=== PATIENT | female | born 1980 | race Caucasian/White ===

== ENCOUNTER 2016-07-31 14:10 | Emergency (ER) | payer OTHER ==
--- NOTE | 2016-07-31 15:26 | PROVIDER DOCUMENTATION ---
HPI-Abdominal Pain/GI Problem - General Source: patient - History of Present Illness-ABD Nature of Presenting Problems: Pt is 35 y/o F presents to the ED with N/V/D. Pt states Dr. Watson wanted Pt to come to ED to receive fluids. Pt states symptoms have been present for 2 days. Pt states 19 weeks . Pt states pain in RUQ and LUQ and back. Abdominal Pain Onset Location: reports: RUQ, LUQ Pain Radiation: reports: back Quality of Pain: reports: aching Severity in ED: reports: mild Onset/Duration: reports: 2 days ago Timing: reports: still present, intermittent Activities at Onset: reports: light activity Exposure to sick contacts?: No Modifying Factors: improves with: nothing Associated Symptoms: reports: back/neck pain (back pain), diarrhea, loss of appetite, nausea, vomiting, weakness. denies: anxiety, arm pain, chest pain, constipation, cough, diaphoresis, dizziness, EENT symptoms, fatigue, fever/ chills, genitourinary problems, headaches, heartburn, joint pain, malaise, muscle aches, sinus congestion/drainage, rash, seizure, shortness of breath, sensory/motor loss, pain with inspiration, swelling/mass in abdomen, syncope, trouble walking Last BM: unsure Dark Stools Present?: reports: none noticed Rectal Bleeding: reports: none # of Diarrhea Episodes: 4 Rectal Pain: reports: none # of Vomiting Episodes: 6 Emesis Description: reports: clear Bruising or Bleeding Gums?: No Similar Symptoms Previously?: Yes Recently seen or treated by another doctor?: Yes <Diane Mccormick - Last Filed: 07/31/16 17:54> <Orlin Cortez - Last Filed: 07/31/16 18:22> - General Chief Complaint: N/V/D Stated Complaint: 18 WEEKS PREG/N/V/D Time Seen by Provider: 07/31/16 15:06 Allergies/Adverse Reactions: Patient Allergies Allergy/AdvReac Type Severity Reaction Status Date / Time latex Allergy HIVES Verified 11/28/15 01:09 hydrocodone bitartrate * AdvReac NAUSEA/VOMI Verified 11/28/15 01:08 [From Lortab] TING tramadol HCl * [From Ultram] AdvReac NAUSEA/VOMI Verified 11/28/15 01:07 TING Home Medications: Home Medication List Medication Instructions Recorded Confirmed Last Taken Type Vit No.124/Iron/FA 1 tab PO DAILY 11/02/15 11/28/15 11/27/15 History [ Vitamin Tablet] Potassium Chloride [Klor-Con M20] 20 meq PO Q8HR #10 tab.er.prt 07/31/16 Unknown Rx Review of Systems - Adult - REVIEW OF SYSTEMS - ADULT Constitutional: denies: chills, fever Eyes: denies: blurred vision, double vision Ears, Nose, Mouth & Throat: denies: ear pain, nose pain, throat pain Cardiovascular: denies: chest pain, heart murmur, irregular heart rate Respiratory: denies: cough, shortness of breath, wheezing Gastrointestinal: reports: abdominal pain (RUQ and LUQ), diarrhea, nausea, vomiting Genitourinary: denies: dysuria, hematuria Musculoskeletal: reports: back pain. denies: bone pain, joint pain, neck pain Integumentary: denies: hives, itching Neurological: denies: dizziness/vertigo, headache/migraines Psychiatric: reports: no symptoms reported Endocrine: reports: no symptoms reported Hematologic/Lymphatic: reports: no symptoms reported Allergic/Immunologic: reports: no symptoms reported All Other Systems: Reviewed and Negative <Diane Mccormick - Last Filed: 07/31/16 17:54> Past History - Adult - PAST MEDICAL HISTORY-ADULT Review of Records: reports: Nursing Assessment Review, Medications Reviewed, Social history reviewed & non-contributory. Major Childhood Illnesses: reports: denies history Cardiovascular: reports: denies history Respiratory: reports: asthma Gastrointestinal: reports: denies history Obstetrical/Gynecological: reports: denies history Genitourinary: reports: kidney stones Musculoskeletal: reports: denies history Neurological: reports: denies history Endocrine/Immune: reports: anemia Other Conditions: reports: denies history - PRIOR SURGERIES/PROCEDURES Surgical/Procedure History: reports: cholecystectomy - IMMUNIZATION STATUS Childhood Immunizations: See Nurse Assessment Flu Vaccine: See Nurse Assessment - FAMILY HISTORY Family History: reviewed, not pertinent - SOCIAL HISTORY Smoking: quit less than 1 year, cigarettes Substance Use: denies Living Situation: family <Diane Mccormikc - Last Filed: 07/31/16 17:54> Physical Exam-General - PHYSICAL EXAM-ADULT Initial Vital Signs Reviewed: Yes - CONSTITUTIONAL General Appearance: appears well, alert, no apparent distress - EYES Eyes: PERRL/EOMI, pink conjunctivae, fundi clear, no AV nicking - HEAD, EARS, NOSE, MOUTH & THROAT HENMT: normocephalic/atraumatic, moist mucous membranes, normal ENT inspection, TMs normal, pharynx normal - NECK Neck: non-tender, full range of motion, supple, normal inspection - RESPIRATORY Respiratory: chest non-tender, lungs clear, normal breath sounds, no pleuratic chest pain, no respiratory distress, no accessory muscle use - CARDIOVASCULAR Cardiovascular: normal peripheral pulses, regular rate, rhythm, no edema, no gallop, no JVD, no murmur - GASTROINTESTINAL (ABDOMEN) Abdominal Exam: normal bowel sounds, soft, no organomegaly, no pulsatile mass, tenderness (RUQ and LUQ), other (fundus palpable under the umbilicus) - LYMPHATIC Lymphatic: no adenopathy - MUSCULOSKELETAL Back Exam: normal inspection, no CVA tenderness, no vertebral tenderness Extremity: normal range of motion, non-tender, normal gait, normal inspection, no pedal edema, no calf tenderness, normal capillary refill - SKIN Integumentary: normal color, normal turgor, warm/dry - NEUROLOGIC Neurologic: grossly normal - PSYCHIATRIC Psych/Mental Status: normal mood/affect, oriented x 3 <Diane Mccormick - Last Filed: 07/31/16 17:54> Progress - PLAN OF CARE/RESULTS Progress/Plan/Lab Results: Vital Signs - 24 hr 07/31/16 14:15 Temperature 98.2 F Pulse Rate 97 H Respiratory 18 Rate Blood Pressure 128/71 O2 Sat by Pulse 97 Oximetry Laboratory Tests 07/31/16 15:55 WBC 7.49 RBC 4.46 Hgb 11.0 L Hct 33.3 L MCV 74.7 L MCH 24.7 L MCHC 33.0 RDW Std Deviation 17.0 H Plt Count 219 MPV 11.4 H Immature Gran % (Auto) 0.3 Neut % (Auto) 70.5 Lymph % (Auto) 21.0 [place] % (Auto) 7.3 Eos % (Auto) 0.8 Baso % (Auto) 0.1 Immature Gran # (Auto) 0.02 Neut # (Auto) 5.28 Lymph # (Auto) 1.57 [place] # (Auto) 0.55 Eos # (Auto) 0.06 Baso # (Auto) 0.01 Orders Category Date Time Status BMP [BASIC METABOLIC PANEL] [CHEM] Stat Lab 07/31/16 15:55 Received CBC WITH ELECTRONIC DIFF [HEME] Stat Lab 07/31/16 15:55 Completed 0.9% Sodium Chloride Inj [Ns] 1,000 ml Med 07/31/16 15:36 Active IV 999 mls/hr 0.9% Sodium Chloride Inj [Ns] 1,000 ml Med 07/31/16 15:36 Active IV 999 mls/hr Ondansetron [Zofran] Med 07/31/16 15:59 Discontinued 8 mg IV NOW ONE Laboratory Tests 07/31/16 07/31/16 15:55 15:55 WBC 7.49 RBC 4.46 Hgb 11.0 L Hct 33.3 L MCV 74.7 L MCH 24.7 L MCHC 33.0 RDW Std Deviation 17.0 H Plt Count 219 MPV 11.4 H Immature Gran % (Auto) 0.3 Neut % (Auto) 70.5 Lymph % (Auto) 21.0 [place] % (Auto) 7.3 Eos % (Auto) 0.8 Baso % (Auto) 0.1 Immature Gran # (Auto) 0.02 Neut # (Auto) 5.28 Lymph # (Auto) 1.57 [place] # (Auto) 0.55 Eos # (Auto) 0.06 Baso # (Auto) 0.01 Sodium 137 Potassium 3.0 L Chloride 103 Carbon Dioxide 22 L Anion Gap 12 BUN 7 L Creatinine 0.6 Estimated GFR/1.73 m2 > 60 BUN/Creatinine Ratio 12 Glucose 99 Calculated Osmolality 272 Calcium 8.7 L - REASSESSMENT Reassessment #1 Time Reassessed: 17:28 (Dr. Cortez at bedside with Pt ) Status: improving (Dr. Cortez states potassium was low and will give Pt some liquid potassium. Dr. Cortez also states he will give Pt PO liquids to see if she can hold PO liquids down. Dr. Cortez states if Pt can hold down PO liquids Pt can go home.) Reassessment Comment: Pt states she is feeling better but is tired and hungry. - CONSULTS/PCP/HOSPITALIST Notification #1 *Consult/PCP/Hospitalist*: Dr. Watson Time Discussed: 16:14 (Dr. Watson states he just got out of a and will make a call to see what is going on. ) Reason/Comments: Dr. Cortez consults with Dr. Watson about Pt Consult Disposition: other #2 Consult: Dr. Watson Time Discussed: 16:16 (Dr. Watson states Pt saw his VEHICLE DYNAMICS ENGINEER and VEHICLE DYNAMICS ENGINEER states to to ED. ) Reason/Comments: Dr. Cortez consults with Dr. Watson about Pt Consult Disposition: other <Diane Mccormick - Last Filed: 07/31/16 17:54> - REASSESSMENT Reassessment #2 Time Reassessed: 18:18 (feeling better, honey po fluids) Status: improving <Orlin Cortez - Last Filed: 07/31/16 18:22> Departure <Diane Mccormick - Last Filed: 07/31/16 17:54> - Departure Time of Disposition Order: 18:19 Certified Medical Emergency: Emergent <Orlin Cortez - Last Filed: 07/31/16 18:22> - Departure DIAGNOSIS: Vomiting , Hypokalemia Disposition: HOME 01 Condition: Good Additional Instructions: ED Follow Up Instructions: You have been treated by a care provider in the Emergency Department. These instructions are being provided to you so you can have an understanding of how to care for yourself upon discharge. Upon discharge from the Emergency Department, you are responsible for making arrangements for follow-up care by a physician of your choice. Take all prescribed medications as directed. Return to the Emergency Department immediately for any new or worsening symptoms. You may call the Physician Referral phone number at [phone] to obtain a list of Physicians who are taking new patients. Prescriptions: Potassium Chloride [Klor-Con M20] 20 meq PO Q8HR #10 tab.er.prt Referrals: Smith Watson MD [Primary Care Provider] - Instructions: Nausea and Vomiting, Hypokalemia Attestation - Scribe Verification/Attestation Scribe:: Diane Mccormick Acting as Scribe for:: Orlin Cortez Scribe documention review:: This chart was documented by a scribe and accurately reflects the service the provider performed and the decisions made by the provider. <Diane Mccormick - Last Filed: 07/31/16 17:54> Physician Attestation - Physician Attestation I, the provider, attest to the following statement:: Orlin Cortez Physician documentation Attestation:: This documentation recorded by the scribe accurately reflects the service I personally performed and the decisions made by me. <Orlin Cortez - Last Filed: 07/31/16 18:22>
[2016-07-31] MEDS ORDERED: NS 1,000 ML IV ONE ×2 (15:36)
[2016-07-31 15:58] LABS: MANUAL DIFF NEEDED? NO
[2016-07-31] MEDS ORDERED: ZOFRAN IV ONE (15:59)
[2016-07-31 16:06] LABS: BASO% 0.1 % (0.0-0.8); EOS# 0.06 X1000 (0.0-0.7); EOS% 0.8 % (0.0-10.0); HEMATOCRIT 33.3 % (37.0-47.0); IMM GRAN# 0.02 X1000 (0.0-0.04); IMM GRAN% 0.3 % (0.0-0.5); LYMPH# 1.57 X1000 (1.2-3.4); MCH 24.7 PG (27-31); MCV 74.7 FL (81-99); MONO# 0.55 X1000 (0.11-0.59); MONO% 7.3 % (1.7-9.3); MPV 11.4 FL (7.4-10.4); NEUT% 70.5 % (42.2-75.2); PLT 219 X1000 (130-400); RBC 4.46 XMIL (4.2-5.4)
[2016-07-31 16:17] LABS: AGAP 12; BUN 7 mg/dL (8-22); CALCIUM 8.7 mg/dL (8.8-10.2); CHLORIDE 103 mmol/L (98-107); COSMO 272; SODIUM 137 mmol/L (136-145); TCO2 22 mmol/L (25-35)
[2016-07-31] MEDS ORDERED: POTASSIUM CHLORIDE 20% LIQUID PO ONE (17:18)
[2016-07-31 17:34] VITALS: BP 109/72
== END 2016-07-31 18:38 | disposition home or self-care (01) ==
LOC: P.ED 14:10
DX: O21.0 Mild hyperemesis gravidarum (principal); O26.892 Other specified pregnancy related conditions, second trimester; E87.6 Hypokalemia; R10.11 Right upper quadrant pain; R10.12 Left upper quadrant pain; M54.9 Dorsalgia, unspecified; R19.7 Diarrhea, unspecified; R53.1 Weakness; Z87.442 Personal history of urinary calculi; Z87.891 Personal history of nicotine dependence; Z3A.19 19 weeks gestation of pregnancy
CPT/HCPCS: 80048; 85025; J2405; J7030

== ENCOUNTER 2016-12-20 04:51 | Inpatient (IN) ==
[2016-12-18 10:40] LABS: BASO% 0.1 % (0.0-0.8); EOS# 0.12 X1000 (0.0-0.7); HEMATOCRIT 33.8 % (37.0-47.0); HEMOGLOBIN 11.2 g/dL (12.0-16.0); IMM GRAN# 0.04 X1000 (0.0-0.04); IMM GRAN% 0.3 % (0.0-0.5); LYMPH# 2.54 X1000 (1.2-3.4); LYMPH% 21.5 % (20.5-51.1); MCH 23.7 PG (27-31); MCHC 33.1 g/dL (33-37); MCV 71.6 FL (81-99); MONO# 0.69 X1000 (0.11-0.59); MONO% 5.8 % (1.7-9.3); MPV 10.7 FL (7.4-10.4); NEUT% 71.3 % (42.2-75.2); PLT 323 X1000 (130-400); RBC 4.72 XMIL (4.2-5.4)
[2016-12-18 12:08] LABS: BANDS 1 % (0-1); EOS 2 % (1-10); LYMPHS 21 % (21-51); MANUAL DIFF NEEDED? YES; MONO 5 % (1-9)
[2016-12-20] MEDS ORDERED: KEFZOL 1 GM/D5W 1 GM/50 ML IVPB IV PRN (04:54)
[2016-12-20] MEDS ORDERED: BICITRA PO ONE (06:00)
[2016-12-20] MEDS ORDERED: PEPCID IV ONE (06:00)
[2016-12-20] MEDS ORDERED: SODIUM CHLORIDE 0.9% INJ ONE (06:00)
[2016-12-20] MEDS: LR 1,000 ML IV SCH ×2 (06:12→17:33)
[2016-12-20 06:31] LABS: URINE SOURCE VOIDED
[2016-12-20] MEDS ORDERED: ZOFRAN ONE (06:31)
[2016-12-20] MEDS ORDERED: EPHEDRINE ONE (06:33)
[2016-12-20] MEDS ORDERED: DURAMORPH ONE (06:33)
[2016-12-20] MEDS ORDERED: ROBINUL ONE (06:43)
[2016-12-20 06:46] LABS: BILIRUBIN URINE NEGATIVE (NEGATIVE); BLOOD URINE NEGATIVE (NEGATIVE); CLARITY CLEAR (CLEAR); COLOR YELLOW; GLUCOSE URINE NEGATIVE (NEGATIVE); LEUKOCYTES URINE 1+ (NEGATIVE); NITRITE URINE NEGATIVE (NEGATIVE); PROTEIN URINE TRACE mg/dL (NEGATIVE); SP GRAVITY URINE 1.015; UROBILINOGEN URINE NORMAL
[2016-12-20] MEDS ORDERED: HYDROXYZINE PO PRN (07:00)
[2016-12-20] MEDS ORDERED: PITOCIN 20 UNITS/LR 20 UNITS/1,000 ML IV.SOLN IV ONE (07:00)
[2016-12-20] MEDS ORDERED: DULCOLAX PR PRN (07:00)
[2016-12-20] MEDS ORDERED: DEMEROL PO PRN ×2 (07:00)
[2016-12-20] MEDS ORDERED: PHENERGAN IM PRN (07:00)
[2016-12-20] MEDS ORDERED: M-M-R II VACCINE SUBQ ONE (07:00)
[2016-12-20] MEDS ORDERED: AMBIEN PO PRN (07:00)
[2016-12-20] MEDS ORDERED: MYLICON PO PRN (07:00)
[2016-12-20] MEDS ORDERED: BOOSTRIX VACCINE IM ONE (07:00)
[2016-12-20] MEDS ORDERED: CYTOTEC PO PRN (07:00)
[2016-12-20] MEDS ORDERED: HYDROXYZINE IM PRN (07:00)
[2016-12-20] MEDS ORDERED: NORCO-10 PO PRN (07:00)
[2016-12-20] MEDS ORDERED: PITOCIN IM PRN (07:00)
[2016-12-20] MEDS ORDERED: NORCO-5 PO PRN (07:00)
[2016-12-20] MEDS ORDERED: DEMEROL IM PRN (07:00)
[2016-12-20 07:09] LABS: UR AMPHETAMINES QUAL NONE DETECTED (NONE DETECT); UR BARBITUATES QUAL NONE DETECTED (NONE DETECT); UR BENZODIAZEPIN QUAL NONE DETECTED (NONE DETECT); UR CANNABINOIDS QUAL NONE DETECTED (NONE DETECT); UR COCAINE QUAL NONE DETECTED (NONE DETECT); UR MDMA QUAL NONE DETECTED (NONE DETECT); UR METHADONE QUAL NONE DETECTED (NONE DETECT); UR METHAMPHETAMINE QUAL NONE DETECTED (NONE DETECT); UR OPIATES QUAL NONE DETECTED (NONE DETECT); UR OXYCODONE QUAL NONE DETECTED (NONE DETECT); UR PCP QUAL NONE DETECTED (NONE DETECT); UR TCA QUAL NONE DETECTED (NONE DETECT)
[2016-12-20 07:44] LABS: BASO% 0.1 % (0.0-0.8); EOS# 0.12 X1000 (0.0-0.7); EOS% 1.1 % (0.0-10.0); HEMATOCRIT 34.3 % (37.0-47.0); HEMOGLOBIN 11.1 g/dL (12.0-16.0); IMM GRAN# 0.03 X1000 (0.0-0.04); IMM GRAN% 0.3 % (0.0-0.5); LYMPH# 2.74 X1000 (1.2-3.4); LYMPH% 24.4 % (20.5-51.1); MANUAL DIFF NEEDED? YES; MCH 23.2 PG (27-31); MCHC 32.4 g/dL (33-37); MCV 71.6 FL (81-99); MONO# 0.84 X1000 (0.11-0.59); MONO% 7.5 % (1.7-9.3); MPV 11.7 FL (7.4-10.4); NEUT% 66.6 % (42.2-75.2); PLT 319 X1000 (130-400); RBC 4.79 XMIL (4.2-5.4)
[2016-12-20 07:45] LABS: LYMPHS 24 % (21-51); MONO 4 % (1-9)
[2016-12-20] MEDS ORDERED: PITOCIN 20 UNITS/LR 20 UNITS/1,000 ML IV.SOLN ONE (07:45)
--- NOTE | 2016-12-20 07:48 | HISTORY AND PHYSICAL ---
HISTORY OF PRESENT ILLNESS: Shannon is a 36-year-old white female 2, para 1-0-0-1, with an estimated gestational age of 39 weeks who desires repeat section. Her care has been generally uncomplicated. The patient desires permanent sterilization and Medicaid tubal papers have been signed within an appropriate time frame. PAST MEDICAL HISTORY: None. PAST SURGICAL HISTORY: Tonsillectomy, kidney stones, cholecystectomy, and previous section times 1. SOCIAL HISTORY: The patient is a former smoker. PHYSICAL EXAMINATION: GENERAL: A white female in no apparent distress. VITAL SIGNS: Afebrile. Vital signs are stable. CARDIOVASCULAR: Regular rate and rhythm. LUNGS: Clear to auscultation bilaterally. ABDOMEN: Soft and nontender. PELVIC: The cervix is closed. PLAN: The patient is set up for a repeat section as well as bilateral tubal ligation. The risks of surgery including bleeding, infection, damage to pelvic organs, anesthesia, and blood transfusion were all discussed at length and informed consent was obtained. The patient also understands that tubal ligation is permanent and a nonreversible sterilization with a 1 in 400 failure rate. All questions were answered and informed consent was obtained. cc: Fredy Ko MD
[2016-12-20] MEDS ORDERED: NARCAN INJ PRN (08:06)
[2016-12-20] MEDS ORDERED: ZOFRAN IV PRN ×2 (08:06)
[2016-12-20] MEDS ORDERED: BENADRYL IV PRN (08:06)
[2016-12-20] MEDS ORDERED: ZOFRAN ODT PO PRN (08:06)
[2016-12-20] MEDS ORDERED: MORPHINE IV PRN (08:07)
[2016-12-20] MEDS: TORADOL IV SCH ×3 (09:01→18:35)
--- NOTE | 2016-12-20 12:06 | OPERATIVE NOTE ---
PREOPERATIVE DIAGNOSIS: Intrauterine at 39 weeks. Previous section. Desires repeat. Desires permanent sterilization. POSTOPERATIVE DIAGNOSIS: Intrauterine at 39 weeks. Previous section. Desires repeat. Desires permanent sterilization. PROCEDURE: Repeat low transverse section and bilateral fimbriectomy. SURGEON: Fredy Ko MD. SUBSTATION OPERATOR APPRENTICE: Smith Watson MD. ANESTHESIA: Spinal per Dr. James. ESTIMATED BLOOD LOSS: 800 mL. DRAINS: Martínez catheter. FINDINGS: A male was delivered in the cephalic position at 7:18 weighing 7 pounds, 7 ounces. Apgars of 9 and 10 at 1 and 5 respectively. DESCRIPTION OF THE PROCEDURE: Patient was taken to the operating room and she was prepped and draped in the usual fashion. After spinal anesthetic was administered adequate anesthetic level was obtained. A time-out was performed and everybody in the room was in agreement as to stated procedure. A Pfannenstiel incision was then carried out with a scalpel on the underlying fascia. Fascia nicked in the midline, extended with Rios scissors. Fascia taken off underlying rectus muscles with Ana clamps and Rios scissors. The peritoneum was bluntly entered. Extended under direct visualization with Rios scissors. Uterus scored in a low transverse fashion. Amniotic membranes were bluntly ruptured and copious clear fluid noted. head and torso were then easily delivered. was placed on the abdomen, cord was clamped and cut, baby bulb suctioned and handed to waiting pediatric team for further assessment. The placenta was delivered and uterus externalized. Good uterine tone was noted. The uterine incision was closed with #1 chromic in a running locking fashion followed by #1 chromic in an imbricating fashion. Excellent hemostasis was noted. Each fallopian tube was then grasped with the fimbriated end and doubly ligated with 0 plain suture. The fimbria removed and tubal stump was cauterized on both sides. Uterus was then replaced into the abdominal cavity. Copious irrigation with normal saline was used. Blood clots were evacuated from the pericolic gutters. All three surgical sites were inspected and noted to be hemostatic. All counts were correct. The peritoneum was reapproximated with 0 chromic in a running fashion. The fascia was then closed with a #1 Biosyn in a running fashion starting in the midline. Subcu fat was closed with 3-0 Polysorb in a running fashion. The skin was closed with 3- 0 Monocryl in a subcuticular fashion. The patient was taken to the recovery room in stable condition. cc: Fredy Ko MD
[2016-12-20] MEDS: MYLICON PO SCH ×4 (17:33→20:53)
[2016-12-20] MEDS: PITOCIN 10 UNITS/LR 10 UNIT/1,000 ML IV.SOLN IV SCH (18:56)
[2016-12-20] MEDS: PERICOLACE PO SCH (20:53)
[2016-12-21] MEDS: TORADOL IV SCH (00:26)
[2016-12-21] MEDS: PITOCIN 10 UNITS/LR 10 UNIT/1,000 ML IV.SOLN IV SCH (02:57)
[2016-12-21] MEDS: PERCOCET-10 PO PRN ×4 (04:30→20:18)
[2016-12-21 06:09] LABS: BASO% 0.1 % (0.0-0.8); EOS# 0.11 X1000 (0.0-0.7); EOS% 1.1 % (0.0-10.0); HEMATOCRIT 25.2 % (37.0-47.0); HEMOGLOBIN 7.9 g/dL (12.0-16.0); IMM GRAN# 0.04 X1000 (0.0-0.04); IMM GRAN% 0.4 % (0.0-0.5); LYMPH% 19.5 % (20.5-51.1); MANUAL DIFF NEEDED? YES; MCH 23.1 PG (27-31); MCHC 31.3 g/dL (33-37); MCV 73.7 FL (81-99); MONO# 0.64 X1000 (0.11-0.59); MONO% 6.2 % (1.7-9.3); MPV 11.6 FL (7.4-10.4); NEUT% 72.7 % (42.2-75.2); PLT 187 X1000 (130-400); RBC 3.42 XMIL (4.2-5.4)
[2016-12-21] MEDS ORDERED: LR 1,000 ML IV SCH (07:00)
[2016-12-21 07:12] LABS: LYMPHS 22 % (21-51); MONO 3 % (1-9)
[2016-12-21] MEDS: MYLICON PO SCH ×4 (08:37→20:19)
[2016-12-21] MEDS: MOTRIN PO PRN ×2 (08:37→20:19)
[2016-12-21] MEDS ORDERED: D/C PCA XX ONE (09:53)
[2016-12-21] MEDS ORDERED: NEOSPORIN OINTMENT PACKET TOP ONE (14:45)
[2016-12-21] MEDS: PERICOLACE PO SCH (20:18)
[2016-12-22] MEDS: PERCOCET-5 PO PRN ×2 (04:07→10:22)
[2016-12-22] MEDS: MOTRIN PO PRN ×2 (04:07→14:50)
[2016-12-22] MEDS: MYLICON PO SCH ×5 (10:23→21:06)
[2016-12-22] MEDS: PERCOCET-10 PO PRN ×2 (14:49→19:40)
[2016-12-22] MEDS: PERICOLACE PO SCH (21:06)
[2016-12-23] MEDS: PERCOCET-10 PO PRN ×2 (01:40→08:31)
--- NOTE | 2016-12-23 07:04 | DISCHARGE SUMMARY ---
ADMISSION DATE: 12/20/2016 DISCHARGE DATE: 12/23/2016 ADMITTING DIAGNOSES: 1. Term . 2. Previous section, requesting repeat section. 3. Undesired fertility. POSTOPERATIVE DIAGNOSES: 1. Term . 2. Previous section, requesting repeat section. 3. Undesired fertility. PRINCIPLE PROCEDURES: Repeat section and tubal sterilization. SUMMARY: Shannon Puente is a 36-year-old, 2, para 1-0-0-1, at term gestation. She had a C- section with her first delivery. She was requesting a repeat . She also desired permanent tubal sterilization. She was therefore admitted to the hospital by Dr. Ko, and he performed a repeat low-transverse , delivering a 7-pound, 7-ounce male with Apgars of 9 at 1 minute and 10 at 5 minutes. Bilateral fimbriectomy was performed. There were no intraoperative complications. Postoperatively, the patient has done well, she has remained afebrile, and all vital signs are stable. She had admission hemoglobin and hematocrit of 11.2/33.8, with discharge hemoglobin and hematocrit being 7.9/25.2. On the day of discharge, cardiac and pulmonary examinations were normal, bowel and bladder function was normal, incision was clean and dry, and she was having scant vaginal bleeding. Ms. Puente will be discharged today, and will see her back in the office in 1 week. Routine discharge instructions, activity limitations, and precautions were discussed. She was given prescriptions for Percocet 10 and Motrin for postoperative pain. She will continue her vitamins. cc: MD Fredy Pabon MD
[2016-12-23 08:30] VITALS: BP 109/74
[2016-12-23] MEDS: MOTRIN PO PRN (08:31)
[2016-12-23] MEDS: MYLICON PO SCH (08:31)
== END 2016-12-23 10:20 | disposition home or self-care (01) ==
LOC: P.LD 04:51 → P.WC 09:48
PROVIDERS: ADMIT Obstetrics & Gynecology; ATTEND Obstetrics & Gynecology